=== PATIENT | male | born 1990 | race Caucasian/White ===

== ENCOUNTER 2021-03-20 19:19 | Observation (INO) ==
[2021-03-20] MEDS ORDERED: LIDOCAINE 1% 20 ML VIAL INFILTRAT STA (19:38)
[2021-03-20] MEDS ORDERED: MORPHINE 4 MG/1 ML VIAL IV STA (19:40)
[2021-03-20] MEDS ORDERED: ONDANSETRON 4 MG/2 ML VIAL IV STA (19:40)
[2021-03-20] MEDS ORDERED: hydrALAZINE 20 MG/1 ML VIAL IV STA (19:40)
[2021-03-20] MEDS ORDERED: ONDANSETRON 4 MG/2 ML VIAL ONE (19:42)
[2021-03-20] MEDS ORDERED: MORPHINE 4 MG/1 ML VIAL ONE (19:43)
[2021-03-20] MEDS ORDERED: hydrALAZINE 20 MG/1 ML VIAL ONE (19:44)
[2021-03-20] MEDS ORDERED: ACETAMINOPHEN 500 MG TABLET PO STA (20:16)
[2021-03-20 20:24] LABS: Basophils % 0.6 % (0.0-0.8); Eosinophils # 0.1 10*3/uL (0.0-0.87); Eosinophils % 1.4 % (0.00-10.9); Hematocrit 43.5 VOL% (42.0-52.0); Hemoglobin 14.9 GM/DL (14.0-18.0); Immature Granulocytes % 0.3 %; Immature Granulocytes Absolute 0.02 #; Lymphocytes # 1.7 10*3/uL (1.4-4.0); Mean Corpuscular HGB Conc 34.3 GM/DL (32-36); Mean Corpuscular Volume 91.2 FL (87-102); Mean Platelet Volume 9.8 FL (9.6-12.0); Monocytes % 9.3 % (1.7-12.7); Neutrophils % 63.4 % (38.7-73.9); Platelet Count 252 T/CUMM (130-400); Red Blood Count 4.77 MC/CUMM (3.8-5.5); Red Cell Distribution Width 13.2 % (9.3-17.3); White Blood Count 6.9 T/CUMM (4-12)
[2021-03-20 21:09] LABS: Alanine Aminotransferase 29 U/L (16-61); Albumin 3.9 G/DL (3.4-5.0); Alkaline Phosphatase 93 U/L (45-117); Aspartate Amino Transferase 20 U/L (0-37); Bilirubin,Total < 0.39 MG/DL (0.2-1.0); Blood Urea Nitrogen 10 MG/DL (7-18); Calcium 9.4 MG/DL (8.5-10.1); Carbon Dioxide 29 MMOL/L (21-32); Estimated Glom Filtration Rate 117 ML/MIN; Glucose 80 MG/DL (74-106); Osmolality,Calculated 276.4 MOS/KG (273-304); Potassium 4.2 MMOL/L (3.5-5.1); Sodium 140 MMOL/L (136-145); Total Protein 7.2 G/DL (6.4-8.2)
[2021-03-20] MEDS ORDERED: ACETAMINOPHEN 325 MG TABLET PO PRN (22:47)
[2021-03-21] MEDS: MORPHINE 4 MG/1 ML VIAL IV PRN ×2 (00:27→08:16)
[2021-03-21] MEDS: ONDANSETRON 4 MG/2 ML VIAL IV PRN ×2 (01:32→08:13)
[2021-03-21] MEDS ORDERED: LISINOPRIL/HCTZ 20-25 MG TABLET PO SCH (09:00)
[2021-03-21] MEDS ORDERED: PANTOPRAZOLE 40 MG VIAL IV SCH (09:00)
[2021-03-21] MEDS ORDERED: fentaNYL 100 MCG/2 ML VIAL ONE (12:04)
[2021-03-21] MEDS ORDERED: DEXAMETHASONE 4 MG/1 ML VIAL ONE (12:14)
[2021-03-21] MEDS ORDERED: ONDANSETRON 4 MG/2 ML VIAL ONE (12:14)
[2021-03-21] MEDS ORDERED: SEVOFLURANE 1 UNIT/15 MINUTE INH ONE (12:23)
[2021-03-21] MEDS ORDERED: propofoL 200 MG/20 ML VIAL IV ONE (12:24)
[2021-03-21] MEDS ORDERED: LIDOCAINE 2% 5 ML VIAL ONE (12:24)
[2021-03-21] MEDS ORDERED: ONDANSETRON 4 MG/2 ML VIAL IV PRN (12:56)
[2021-03-21] MEDS: HYDROmorphone 2 MG/1 ML VIAL IV PRN ×2 (13:10→13:30)
[2021-03-21] MEDS ORDERED: TETANUS IMMUNE GLOBULIN 250 UNIT SYRINGE IM ONE (13:50)
[2021-03-21] MEDS ORDERED: DIPHTHERIA/TETANUS ADULT VACCINE 0.5 ML SYRINGE IM ONE (13:51)
[2021-03-21 17:14] VITALS: BP 113/75
== END 2021-03-21 18:25 | disposition home or self-care (01) ==
LOC: EDBD → EDUNIT# → N.EDINP 19:19 → N.ED 19:19 → N.EDINP 22:17 → N.3E 22:45
PROVIDERS: ADMIT Student in an Organized Health Care Education/Training Program; ATTEND Student in an Organized Health Care Education/Training Program